=== PATIENT | female | born 1965 | race Caucasian/White ===

== ENCOUNTER 2024-09-25 08:46 | Outpatient (AMB) | payer MEDICAID, SELFPAY ==
[2024-09-25 09:05] VITALS: BP 126/81; PULSE 84; RESP 19; TEMP 36.3; O2SAT 95; BMI 39.2
--- NOTE | 2024-09-25 09:05 | ORTHONT_ITS ---
Vital signs 09/25/24 09:05 Height 1.57 m Height Method Stated Weight 97.267 kg Weight Measurement Method Standing Scale BMI 39.2 BP 126/81 Blood Pressure Source Automatic Cuff Blood Pressure Location Left Upper Arm Position Sitting Respiration 19 Pulse 84 Pulse Source Monitor Temp 97.3 F Temp Source Temporal Artery Scan Pulse Oximetry (%) 95 Oxygen Delivery Method Room Air Med/Allergies Allergies & Medications Allergies aspirin Allergy (Verified 09/25/24 09:06) Penicillins Allergy (Verified 09/25/24 09:06) Medication Reconciliation albuterol sulfate 2 mg/5 mL oral syrup 2 mg PO TID 09/25/24 [History Confirmed 09/25/24] Exam Exam Patient is in no acute distress and is cooperative with the examination today. Breathing is nonlabored. In no respiratory distress. Bilateral extremities were evaluated and demonstrates sensation intact to light touch. Palpable pedal pulses are present. No significant edema is present. Bilateral hips were examined. The patient has no pain with log roll of the hips. Internal rotation to 30 degrees and external rotation to 30 degrees is painless. Negative FADIR. The left knee was examined. The left knee is in varus alignment. Range of motion from 0-115 degrees. Knee is stable to varus and valgus as well as AP translation with <5mm. Patient has a negative McMurrays. There is no pain with patellofemoral compression and no crepitus noted. The knee is tender to palpation medially. The right knee was also examined. The right knee is in varus alignment. Range of motion from 0-120 degrees. Knee is stable to varus and valgus as well as AP translation with <5mm. Patient has a negative McMurrays. There is no pain with patellofemoral compression and no crepitus noted. The knee is tender to palpation medially. Assessment and Plan Problem List (1) Degenerative arthritis of knee, bilateral: Status: Acute Plan: Patient is a 58-year-old female with bilateral knee pain and bilateral knee arthritis. She is not has significant conservative treatment. We discussed nonoperative treatment including injections and anti-inflammatories. Will start with anti-inflammatories and injections. We will need to see her new x-rays as well Office Procedures GNS Level of Care Nursing/Assessment Patient Status: Initial/New Patient Nursing Assessment/Reassesment: Medication Reconciliation, Update PMH in EMR and Vital Signs Coordination of Care: Complex Care and Chronic Disease 1-5, Education Complex Pt/Fam, Consent,records obtained, informed consent, 1 Ins Authorization, Lab and Imaging orders, Results/Orders obtained and Staff clarify orders New Patient Charge New Patient Point Assignment: 1124 New Patient Point Charge: SPINDLE MAKER Level 4 ([id number]) MA Intake Visit Data Collection New Patient or Established: New Patient (never been to [facility]) Reason for Visit:: BILATERAL KNEE PAIN Seen by Clinical Staff ONLY (RN/MA): No Customer Insight Analyst Required: No PCP or OBGYN visit in last 3 months: Yes Hx Now: No Do You Feel Safe at Home: Yes Authorities Contacted: N/A Questionairres Past Medical History Past Medical History Have you ever been diagnosed with any of the following: Cardiology Problems Hypercholesterolemia: Yes Respiratory Problems Asthma: Yes Subjective Visit Visit for: new patient and knee (BILATERAL) Immunization / Flu Flu Vaccine in the Last 12 Months: No Flu Vaccine Exclusion Criteria: Refused by Patient History of Present Illness Chief complaint: Left knee pain Jennifer is a pleasant 58-year-old female with left knee pain. This knee pain has been ongoing for a while. She has right knee pain as well but is not as bad as the left. We discussed that we will need to see x-rays as she does not have one. She has not had any conservative treatment. Personal History Occupation: NONE Hobbies: NONE Pain Pain level (0-10): 7 Pain duration: ON AND OFF Pain location: inside (medial) Pain quality: shocking and other (specify) (LOCKING) Pain timing: night, increases with activity and stairs Associated signs & symptoms: numbness, weakness and stiffness Ambulatory data Ambulatory device: none Treatments Improvement with previous injections: No Improvement with PT: No Improvement with NSAIDS: no Review of Systems Review of Systems: All systems negative unless otherwise noted in HPI.
== END 2024-09-25 09:35 | disposition home or self-care (01) ==
LOC: HODSRG 08:46
PROVIDERS: PCP Physician Assistant; Referring Provider Physician Assistant; Supervising Provider Orthopaedic Surgery Adult Reconstructive Orthopaedic Surgery; Visit Provider Orthopaedic Surgery Adult Reconstructive Orthopaedic Surgery
DX: M17.0 Bilateral primary osteoarthritis of knee (principal); M25.562 Pain in left knee; E78.00 Pure hypercholesterolemia, unspecified
CPT/HCPCS: 99204; G0463

== ENCOUNTER → 2024-09-25 | Outpatient (CLI) | payer MEDICAID, SELFPAY ==
--- NOTE | 2024-09-25 10:13 | XR_ITS ---
Examination: Bilateral knees 2 views Right lateral knee left lateral knee 2 views Bilateral axial knees single view TECHNIQUE: Bilateral AP knees standing single view, bilateral PA knees standing single view 30 degrees flexion Standing right lateral knee left lateral knee 2 views Bilateral axial knees single view total 5 views Exam date and time: September 25, 2024 1036 hours INDICATIONS: Bilateral knee pain 5 years. FINDINGS: Moderate osteopenia Severe narrowing medial joint spaces bilaterally, [id number] Advanced osteoarthritis bilateral patellofemoral and lateral joint spaces No fracture IMPRESSION: Advanced tricompartment osteoarthritis including bilateral severe narrowing medial joint spaces, [id number]
== END | disposition home or self-care (01) ==
PROVIDERS: Referring Provider Orthopaedic Surgery Adult Reconstructive Orthopaedic Surgery; Visit Provider Orthopaedic Surgery Adult Reconstructive Orthopaedic Surgery
DX: M17.0 Bilateral primary osteoarthritis of knee (principal); M25.862 Other specified joint disorders, left knee; M25.861 Other specified joint disorders, right knee
CPT/HCPCS: 73564